=== PATIENT | male | born 1950 | race Caucasian/White ===

== ENCOUNTER 2024-08-01 09:06 | Outpatient (CLI) | payer MEDICARE, SELFPAY | END 2024-08-01 09:07 | disposition home or self-care (01) | LOC: AMB 08-02 09:54 | PROVIDERS: Visit Provider Emergency Medicine | DX: S79.911A Unspecified injury of right hip, initial encounter (principal); W18.30XA Fall on same level, unspecified, initial encounter; Y92.039 Unspecified place in apartment as the place of occurrence of the external cause | CPT/HCPCS: A0425; A0433 ==

== ENCOUNTER 2024-08-01 09:40 | Observation (INO) | payer MEDICARE, SELFPAY ==
[2024-08-01] VITALS (35 sets, daily range): BP systolic 180–186; BP diastolic 94–108; PULSE 95–102; RESP 18–20; TEMP 37.2–37.3; O2SAT 90–97; BMI 25.7; BMI 25.1
--- OUTSIDE RECORDS SUMMARY | 2024-08-01 09:42 | XMS_ITS | Clinical Summary ---
Author Organization [facility] Address [address] [place] [id number] Care Team Providers Care Farmworker Livestock Name Role Phone Wiley Ponce DO Primary Care Provider [phone] Allergies Active Allergy Reactions Criticality Noted Date Comments Penicillins *Unknown - Pt Doesn't Remember 06/2007 Medications Blood Pressure MonitorIndicatio ns:Hypertension, unspecified type Check blood pressure 2-3 times weekly in same arm. Record readings for appointments. 1 Device 8 Active naproxen (ALEVE) 220 mg tablet Take 1 tablet by mouth 2 times daily with meals. 0 0 Active ketorolac 0.5 % ophthalmic (ACULAR) solution INSTILL 1 DROP INTO OPERATIVE EYE 4 TIMES A DAY STARTING AFTER SURGERY 2 Active ofloxacin 0.3 % ophthalmic (OCUFLOX) 0.3 % ophthalmic solution instill 1 drop into operative eye 4 times a day starting Monday before surgery 2 Active prednisoLONE acetate 1% ophthalmic (ECONOPRED PLUS, PRED FORTE, OMNIPRED) suspension INSTILL 1 DROP INTO OPERATIVE EYE 4 TIMES A DAY STARTING AFTER SURGERY 2 Active amLODIPine (NORVASC) 5 mg tabletIndication s:HTN (hypertension) TAKE ONE TABLET BY MOUTH ONE TIME DAILY 90 Tablet 3 4 Active metFORMIN (GLUCOPHAGE XR) 500 mg Extended-Release tabletIndication s:Controlled type 2 diabetes mellitus with complication, without long-term current use of insulin (HC) Take 3 Tablets (1,500 mg) by mouth once daily with evening meal. Patient states he takes 3 270 Tablet 3 4 01/30/20 25 Active atorvastatin (LIPITOR) 40 mg tabletIndication s:Hypercholester olemia TAKE ONE TABLET BY MOUTH AT BEDTIME 90 Tablet 4 Active losartan (COZAAR) 100 mg tabletIndication s:HTN (hypertension) TAKE ONE TABLET BY MOUTH ONE TIME DAILY 90 Tablet 4 Active ezetimibe (ZETIA) 10 mg tabletIndication s:Hypercholester olemia TAKE ONE TABLET BY MOUTH ONE TIME DAILY 90 Tablet 4 Active Farxiga 5 mg tabletIndication s:Controlled type 2 diabetes mellitus with complication, without long-term current use of insulin (HC) TAKE ONE TABLET BY MOUTH ONE TIME DAILY 90 Tablet 4 Active Active Problems Problem Noted Date Diagnosed Date Fatty liver 07/12/2021 Overview (07/12/2021): Dx on CT done for lung ca screening 06/2021-- mild Hypercholesterolemia 07/11/2018 Controlled type 2 diabetes m ellitus with complication, without long-term current use of insulin 04/13/2018 HTN (hypertension) 04/13/2018 Current every day nicotine vaping 10/02/2012 Encounters Date Type Department Care Team Description 06/27/2024 9:00 AM PAVING PLANT OPERATOR Ancillary Procedure [facility] [address] [place] [address] 06/27/2024 8:05 AM PAVING PLANT OPERATOR Office Visit [facility] [address] [place] [address] Wiley Ponce DO Diabetes; Medication Management 06/27/2024 Travel 05/09/2024 Refill [facility] [address] [place] [address] Wiley Ponce DO Refill Request (Ezetimibe, Farxiga) from Last 3 Months Immunizations Name Administration Dates Next Due Pneumococcal conj 13-Valent (Prevnar 13) 020 Tdap 03/24/2014 Family History Medical History Relation Name Comments Heart attack Brother 1 Hypertension Brother 1 Hypertension Brother 2 Hypertension Brother 3 Heart attack Father Hypertension Father Heart attack Mother Hypertension Mother Anesthesia Malignant Hyperthermia Other Anesthesia Problem Other Hypertension Sister 1 Hypertension Sister 2 Relation Name Status Comments Brother 1 Alive Brother 2 Alive Brother 3 Alive Father Mother Other Sister 1 Alive Sister 2 Alive Social History Tobacco Use Types Packs/Day Years Used Date Smoking Tobacco: Every Day Cigarettes 0.7 52 Started: 06/28/1974 Smokeless Tobacco: Never Tobacco Cessation:Ready to Q uit: No; Counseling Given: Yes Alcohol Use Standard Drinks/Week Comments Yes 0 (1 standard drink = 0.6 oz pur e alcohol) 2 max per day PHQ-2 Answer Date Recorded PHQ-2 TOTAL SCORE 0 10/10/2023 Social Connections Answer Date Recorded Do you often feel lonely or isolated from those around you? 0 10/10/2023 Financial Resource Strain Answer Date R ecorded Difficulty of Paying Living Expenses 3 10/10/2023 Difficulty of Paying Living Expenses Not on file 10/10/2023 Food Insecurity Answer Date Recorded Do you worry your food will run out before you are able to buy more? 1 10/10/2023 Transportation Needs Answer Date Record ed Does lack of transportation keep you from medica l appointments? 1 10/10/2023 Does lack of transportation keep you from work, meetings or getting things that you need? 1 10/10/2023 Housing Stability Answer Date Recorded What is your housing situation today? 1 10/10/2023 Utilities Answer Date Recorded Do you have trouble paying f or utilities (for example, heat, electricity, water, phone)? 1 10/10/2023 Sex and Gender Information Value Date Recorded Sex Assigned at Not on file Legal Sex Male 6:15 AM PAVING PLANT OPERATOR Gender Identity Not on file Sexual Orientation Not on file Obstetrics History Last Filed Vital Signs Vital Sign Reading Time Taken Comments Blood Pressure 146/79 06/27/2024 8:30 AM PAVING PLANT OPERATOR Pulse 104 06/27/2024 8:11 AM PAVING PLANT OPERATOR Temperature 36.6 C (97.9 F) 09/01/2021 10:24 AM CDT Respiratory Rate 18 07/09/2021 10:16 AM PAVING PLANT OPERATOR Oxygen Saturation 98% 06/27/2024 8:11 AM PAVING PLANT OPERATOR Inhaled Oxygen Concentration - - Weight 89.6 kg (197 lb 9.6 oz) 06/27/2024 8:11 A M PAVING PLANT OPERATOR Height 180.6 cm (5' 11.1) 06/27/2024 8:11 AM CS T Body Mass Index 27.48 06/27/2024 8:11 AM PAVING PLANT OPERATOR Plan of Treatment Upcoming Encounters Date Type Department Care Team (Late st Contact Info) Description 08/22/2024 8:00 AM CDT Office Visit [facility] [address] [place] [address] Owen Diaz MD [address] [place] [address] 12/26/2024 8:55 AM CDT Office Visit [facility] [address] [place] [address] Wiley Ponce DO [address] [place] [address] Health Maintenance Due Date Last Done Comments Zoster (shingles) series for age 50+ (1 of 2) 01/16/2002 RSV vaccine for adults or (1 - Risk 60-74 years 1-dose series) 2012 Pneumococcal series for age 50+ (2 of 2 - PPSV23) 10/07/2019 08/12/2019 COVID-19 vaccine series (3 - season) 2024 08/22/2020, 08/01/2020 Influenza for age 65+ 01/28/2024 Tetanus booster 03/24/2024 03/24/2014 Depression screening for age 12+ 10/10/2024 10/11/2023, 10/10/2023, 08/18/2022, Additional history exists Medicare Wellness for age 65+ 10/10/2024 10/10/2023, 08/16/2022 (Verified in Care Everywhere or Patient Record) Low Dose CT (for lung CA) age 50-80 10/23/2024 10/24/2023, 07/09/2021 BMI (ht and wt on same day) for age 18+ 06/27/2025 06/27/2024, 10/10/2023, 08/16/2022, Additional history exists Colonoscopy through age 75 06/29/2025 P ostponed from 01/16/1997 (Patient discretion) Lipids for age 45-75 10/09/2028 10/10/2023, 08/16/2022, 11/25/2020, Additional history exists Tdap Completed 03/24/2014 Hepatitis C screening for age 18-79 Completed 08/12/2019 AAA screening age 65-74 Completed 02/13/2020 Goals Goal Patient Goal Type Associated Problems Recent Progress Patient-Stated? Author BLOOD PRESSURE - Maintains BP less than 140/90 Blood Pressure No Wendy Watters PA Procedures Procedure Name Priority Date/Time Associated Diagnosis Comments HEMOGLOBIN A1C MONITORING (POCT) Routine 06/27/2024 9:34 AM PAVING PLANT OPERATOR Controlled type 2 diabetes mellitus with complication, without long-term current use of insulin (HC) BASIC METABOLIC PANEL Routine 06/27/2024 9:33 AM PAVING PLANT OPERATOR Controlled type 2 diabetes mellitus with complication, without long-term current use of insulin (HC) HTN (hypertension) XR KNEE 3 VIEWS RIGHT Routine 06/27/2024 9:15 AM PAVING PLANT OPERATOR Chronic pain of right knee URINE ALBUMIN TO CREATININE RATIO, RANDOM Routine 06/27/2024 8:40 AM PAVING PLANT OPERATOR Controlled type 2 diabetes mellitus with complication, without long-term current use of insulin (HC) CT CHEST SCREENING LOW DOSE WO CONTRAST Routine 10/24/2023 9:06 AM CDT Encounter for screening for lung cancer Personal history of nicotine dependence LIPID PANEL W REFLEX MEASURED LDL Routine 10/10/2023 8:25 AM CDT Controlled type 2 diabetes mellitus with complication, without long-term current use of insulin (HC) US ABD AORTA SCREENING Routine 02/13/2020 7:52 AM CDT Screening for AAA (aortic abdominal aneurysm) ANTI HCV Routine 08/12/2019 8:48 AM CDT HTN (hypertension) from Last 3 Months or Most Recently Relevant to Health Maintenance Results * (ABNORMAL) POCT Hemoglobin A1C Monitoring (06/27/2024 9:34 AM PAVING PLANT OPERATOR) [facility] POC HEMOGLOBIN A1C 6.7(H) <6.0 % OF TOTAL HGB [facility] Comment: Any point of care results exhibiting inconsistency with the patient's clinical status should be repeated using a different testing method. Blood BLOOD SPECIMEN / Unknown 06/27/2024 9:34 AM PAVING PLANT OPERATOR 06/27/2024 9:34 AM PAVING PLANT OPERATOR Wiley Ponce DO CHEMISTRY Final Result [facility] [address] [place] [address], [facility] [address] [place] [address] * (ABNORMAL) BASIC METABOLIC PANEL (06/27/2024 9:33 AM PAVING PLANT OPERATOR) [facility] GLUCOSE 165(H) 65 - 99 mg/dL [facility] Comment: Fasting reference interval For someone without known diabetes, a glucose value >125 mg/dL indicates that they may have diabetes and this should be confirmed with a follow-up test. UREA NITROGEN (BUN) 17 7 - 25 mg/dL [facility] CREATININE 1.18 0.70 - 1.28 mg/dL [facility] EGFR 66 > OR = 60 mL/min/1. 73m2 [facility] BUN/CREATININE RATIO SEE NOTE: 6 - 22 (calc) [facility] Comment: Not Reported: BUN and Creatinine are within reference range. SODIUM 136 135 - 146 mmol/L [facility] POTASSIUM 4.7 3.5 - 5.3 mmol/L [facility] CHLORIDE 99 98 - 110 mmol/L [facility] CARBON DIOXIDE 28 20 - 32 mmol/L [facility] ELECTROLYTE BALANCE 9 7 - 17 mmol/L (calc) [facility] CALCIUM 9.8 8.6 - 10.3 mg/dL [facility] Blood BLOOD SPECIMEN / Unknown 06/27/2024 9:33 AM PAVING PLANT OPERATOR 06/27/2024 9:33 AM PAVING PLANT OPERATOR us Wiley Ponce DO CHEMISTRY Final Result [facility] [address] [place] [address], [place] [phone] [facility] [address] [place] [address] * XR KNEE 3 VIEWS RIGHT (06/27/2024 9:15 AM PAVING PLANT OPERATOR) Anatomical Region Laterality Modality KNEES, KNEE R Computed Radiogr aphy 06/27/2024 10:2 9 AM PAVING PLANT OPERATOR Impressions 06/27/2024 10:29 AM PAVING PLANT OPERATOR 1. 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 Dictated by Ryan Izquierdo MD @ 06/27/2024 10:29:33 AM Dictated by: Ryan Izquierdo MD @ 06/27/2024 10:29:39 (Electronically Signed) Narrative 06/27/2024 10:29 AM PAVING PLANT OPERATOR For Patients: As a result of the Cures Act, medical imaging exams and procedure reports are released immediately into your electronic medical record. You may view this report before your referring provider. If you have questions, please contact your health care provider. INDICATION: Chronic pain of right knee TECHNIQUE: Knee radiograph 3 views right COMPARISON: 03/24/2014 FINDINGS: Bone: No acute fractures or aggressive bone lesions are identified. Joint: There is severe medial, moderate patellofemoral, and mild lateral compartment osteoarthritis present and progressed from prior exam. No significant knee effusion is seen. Soft tissue: Unremarkable. No radiopaque foreign bodies are seen. Moderate vascular calcifications are noted. Procedure Note Ryan Izquierdo MD - 06/27/2024 For Patients: As a result of the Cures Act, medical imagingexams and procedure reports are released immediately into your electronicmedical record. You may view this report before your referring provider.If you have questions, please contact your health care provider. INDICATION: Chronic pain of right knee TECHNIQUE: Knee radiograph 3 views right COMPARISON: 03/24/2014 FINDINGS: Bone: No acute fractures or aggressive bone lesions are identified. Joint: There is severe medial, moderate patellofemoral, and mild lateralcompartment osteoarthritis present and progressed from prior exam. Nosignificant knee effusion is seen. Soft tissue: Unremarkable. No radiopaque foreign bodies are seen. Moderatevascular calcifications are noted. IMPRESSION: 1. There is severe medial, moderate patellofemoral, and mild lateralcompartment osteoarthritis present and progressed from prior exam. Dictated by Ryan Izquierdo MD @ 06/27/2024 10:29:33 AM Dictated by: Ryan Izquierdo MD @ 06/27/2024 10:29:39 (Electronically Signed) us Adei Ambroniteqra DO GENERAL IMAGING Final Result * (ABNORMAL) URINE ALBUMIN TO CREATININE RATIO, RANDOM (06/27/2024 8:40 AM PAVING PLANT OPERATOR) ALB RAND URINE 153.0 mg/L 06/27/2024 2:50 PM PAVING PLANT OPERATOR [facility] CREATININE,URIN E 1.10 g/L 06/27/2024 2:50 PM PAVING PLANT OPERATOR [facility] ALBUMIN TO CREATININE RATIO,RAND UR 139.1(H) <30.0 mg/g creat 06/27/2024 2:50 PM PAVING PLANT OPERATOR [facility] Urine URINE SPECIMEN / Unknown Non-Blood / Unknown 06/27/2024 8:40 AM PAVING PLANT OPERATOR 06/27/2024 8:40 AM PAVING PLANT OPERATOR Narrative [facility] - 06/27/2024 2:50 PM PAVING PLANT OPERATOR If Albumin to Creatinine Ratio is elevated, consider the following: Elevations seen with incipient nephropathy associated with diabetes mellitus or hypertension. Stress, exercise,hematuria, and urinary tract infection may also produce elevated results. If clinically indicated, confirm with 24 Hour Albumin to Creatinine Ratio. us Adei Ambroniteqra DO URINE Final Result [facility] [address] [place] [address], [place] * CT CHEST SCREENING LOW DOSE WO CONTRAST [[id number]] (10/24/2023 9:06 AM CDT) Anatomical Region Laterality Modality Computed Tomogra phy Impressions 10/25/2023 9:55 AM CDT No suspicious pulmonary nodules. LUNG-RADS CATEGORY 1: Negative. RADIOLOGIST RECOMMENDATION: Continue annual screening with low-dose CT chest in 12 months. Please note that all CT scans at this facility use dose modulation, iterative reconstruction and/or weight-based dosing when appropriate to reduce radiation dose to as low as reasonably achievable. Dictated by: Ismael Schumacher MD @10/24/2023 12:44:38 PM/CRL:pjt Narrative 10/25/2023 9:55 AM CDT For Patients: As a result of the Cures Act, medical imaging exams and procedure reports are released immediately into your electronic medical record. You may view this report before your referring provider. If you have questions, please contact your health care provider. CHEST SCREENING LOW DOSE WITHOUT CONTRAST INDICATION: Lung cancer screening. History of smoking. High risk patient with greater than 20 pack-year smoking history. TECHNIQUE: Low-dose lung cancer screening non-contrast CT chest. Dose reduction techniques were used. COMPARISON: 07/09/2021 FINDINGS: NODULES: No suspicious pulmonary nodules. Benign-appearing 2 mm right upper lobe calcified granuloma. LUNGS AND PLEURA: Mild emphysematous changes at the lung apices. No focal airspace opacities or pleural effusions. MEDIASTINUM: No significant lymphadenopathy. CORONARY ARTERY CALCIFICATION: Present. LIMITED UPPER ABDOMEN: No acute findings in the visualized portions. MUSCULOSKELETAL: Visualized osseous structures demonstrate degenerative changes in the spine. us Adei Shaqra DO CT Final Result * (ABNORMAL) LIPID PANEL W REFLEX MEASURED LDL (10/10/2023 8:25 AM CDT) CHOLESTEROL,TOTAL 190 100 - 199 mg/dL 10/10/2023 6:06 PM CDT [facility] Comment: Cholesterol, Total Reference Ranges Desirable <200 mg/dL Borderline 200-239 mg/dL High >=240 mg/dL TRIGLYCERIDES 186(H) <150 mg/dL 10/10/2023 6:06 PM CDT [facility] HDL CHOLESTEROL 56 >40 mg/dL 6:06 PM CDT [facility] NON-HDL CHOLESTEROL 134 <145 mg/dl 10/10/2023 6:06 PM CDT [facility] CHOL/HDL RATIO 3.39 <4.50 10/10/2023 6:06 PM CDT [facility] LDL CHOLESTEROL 97 <=130 mg/dL 10/10/2023 6:06 PM CDT [facility] VLDL CHOLESTEROL 37(H) <=30 mg/dL 10/10/2023 6:06 PM CDT [facility] PROVIDER ORDERED STATUS RANDOM 10/10/2023 6:06 PM CDT [facility] Blood BLOOD SPECIMEN / Unknown Venipuncture / Unknown 10/10/2023 8:25 AM CDT 10/10/2023 8:27 AM CDT us Wiley Ponce DO CHEMISTRY Final Result [facility] [address] [place] [address], [place] * US ABD AORTA SCREENING [[id number]] (02/13/2020 7:52 AM CDT) Anatomical Region Laterality Modality Abdomen, AORTA Ultrasound 02/13/2020 11:2 4 AM CDT Narrative 02/13/2020 11:24 AM CDT INDICATION: Screening for abdominal aortic aneurysm. COMPARISON: None. TECHNIQUE: Prado scale and color Doppler images were acquired of the abdominal aorta and iliac arteries. FINDINGS: Sonographic imaging demonstrates a normal appearance of the visualized included abdominal aorta and IVC. There is no evidence of aneurysm formation or aortic dissection. Please note the proximal abdominal aorta is not seen due to bowel gas. However the mid aorta measures 2.5 x 2.6 cm, and distally tapers to a measurement of 2.4 x 2.1 cm. The common iliac arteries are patent and measure 1.6 x 1.6 cm on the right and 1.7 x 1.4 cm in diameter on the left. There were no suspicious periaortic masses. IMPRESSION: Normal sonographic assessment of the visualized included abdominal aorta. Please note the proximal abdominal aorta is not well seen due to bowel gas. Dictated by Kash Will MD @ Feb 13 2020 11:24AM (Electronically Signed) Procedure Note Kash Will MD - 02/13/2020 INDICATION: Screening for abdominal aortic aneurysm. COMPARISON: None. TECHNIQUE: Prado scale and color Doppler images were acquired of the abdominal aortaand iliac arteries. FINDINGS: Sonographic imaging demonstrates a normal appearance of the visualizedincluded abdominal aorta and IVC. There is no evidence of aneurysmformation or aortic dissection. Please note the proximal abdominal aortais not seen due to bowel gas. However the mid aorta measures 2.5 x 2.6 cm,and distally tapers to a measurement of 2.4 x 2.1 cm. The common iliacarteries are patent and measure 1.6 x 1.6 cm on the right and 1.7 x 1.4 cmin diameter on the left. There were no suspicious periaortic masses. IMPRESSION: Normal sonographic assessment of the visualized included abdominal aorta.Please note the proximal abdominal aorta is not well seen due to bowelgas. Dictated by Kash Will MD @ Feb 13 2020 11:24AM (Electronically Signed) Wendy LEDESMA US Final Result * ANTI HCV (08/12/2019 8:48 AM CDT) HEPATITIS C ANTIBODY Non-React trish Non-React trish 08/12/2019 2:43 PM CDT [facility] Comment:Antibodies to HCV no t detected; does not exclude the possibility of exposure to HCV. Blood BLOOD SPECIMEN / Unknown Venipuncture / Unknown 08/12/2019 8:48 AM CDT 08/12/2019 8:48 AM CDT Wendy LEDESMA SEND OUTS Final Result [facility] [address] [place] [address], [place] from Last 3 Months or Most Recently Relevant to Health Maintenance Insurance [address] [place] [id number] [facility] MR/[address] [place] [address] [facility] Care Teams Farmworker Livestock Relationship Specialty Start Date End Date Wiley Ponce DO [address] [place] [address] PCP - General Family Practice 08/16/22
--- OUTSIDE RECORDS SUMMARY | 2024-08-01 09:42 | XMS_ITS | Continuity of Care Document ---
Author Organization [facility] Address [address] [place] [address] Phone Care Team Providers Care Chiropractic Physician Name Role Phone Remedios Carney Unavailable Unavailable Allergies, Adverse Reactions, Alerts Substance Reaction Status Criticality Penicillins Unknown Active No Information Medications Medication Instructions Dosage Effective Dates (start - stop) Status Comments calcitonin (salmon) 200 unit/actuation nasal spray 1 spray in 1 nostril once daily, alternate nostrils - Active M[employer] [facility] (unknown strength) Not Available - Active Procedures Procedure Date Office/Outpatient Visit,Est, Mod 2017 X-Ray Exam Of Trunk Spine 2 Views Office/Outpatient Visit,Est, Mod 2017 X-Ray Exam Lower Spine 2-3 Views 2017 Office/Outpatient Visit,Est, Mod 2017 X-Ray Exam Lower Spine 2-3 Views 2017 Office/Outpatient Visit,New, Mod 2017 Advance Directives Directive Yes / No Effective Date File Name No Information Encounters Encounter Description Practice Location Reason(s) For Visit Diagnoses Date Provider Providers Copied on Encounter Office/Outpat ient Visit,Est, Mod [facility], [address], [place], [place], [id number], [place] tel:[phone] [facility] L1 wedge compression fracture, subsequent encounter for fracture w/ routine healing Ariana Remedios. [facility], [address] [place] [address] [address], [place], [address], [place]. tel:[phone] Referring Provider: Sherrill Harrington, [employer] [facility], [place], [address]. tel:[phone] Office/Outpat ient Visit,Est, Mod [facility], [address], [facility] [place], [id number], [place] tel:[phone] [facility] L1 wedge compression fracture, subsequent encounter for fracture w/ routine healing Ariana Remedios. [facility], [address] [place] [address] [address], [place], [address], [place]. tel:[phone] Referring Provider: Sherrill Harrington, [employer] [facility], [place], [address]. tel:[phone] Office/Outpat ient Visit,Est, Mod [facility], [address], [facility] [place], [id number], [place] tel:[phone] [facility] L1 wedge compression fracture, subsequent encounter for fracture w/ routine healing Ariana Remedios. [facility], [address] [place] [address] [address], [place], [address], [place]. tel:[phone] Referring Provider: Sherrill Harrington, [employer] [facility], [place], [address]. tel:[phone] Office/Outpat ient Visit,New, Mod [facility], [address], [facility] [place], [id number], [place] tel:[phone] [facility] L1 wedge compression fracture, initial encounter for closed fracture Ariana Remedios. [facility], [address] [place] [address] [address], [place], [address], [place]. tel:[phone] Referring Provider: Sherrill Harrington, [employer] [facility], [place], [address]. tel:[phone] Family History Family Member Type Diagnosis Age At Onset No Information Payers Payer name Insurance type Covered alliance party ID Cristina serna(radha) [place] [address] [facility] [id number] Social History Type Description Quantity Date Captured Comments Alcohol Use Details Unknown Caffeine Use Details Unknown Tobacco Use Status Smoking Status No Information Sex Male Vital Signs Date / Time: Height Weight BMI Pulse Rate Blood Pressure Temperature Respiratory Rate Body Surface Area Head Circumference Head Circ. Percentile Wt./Julian. Percentile BMI percentile Pulse Ox Inhaled Ox 10:11 AM 71.00 in 87.997 kg (194.00 lbs) 27.0 5 kg/m eter (2) 102 /min 192/126 mm[Hg] Chief Complaint And Reason For Visit No Information Reason For Referral Reason For Referral No Information Plan Of Treatment Date Type Action Status Future Order: Radiology Order AP Lateral Lumbar (APLatLumb), Ordered on: Ordered Future Order: Radiology Order AP Lateral Lumbar (APLatLumb), Ordered on: Ordered Future Order: Radiology Order AP Lateral Lumbar (APLatLumb), Ordered on: Ordered History Of Present Illness Encounter Date Complaint History Of Prese nt Illness No Information Functional Status Date Functional Assessmen t No Information Instructions Date Instruction Additional Infor mation No Information Assessments Type Assessment Date No Information Patient Care Teams Name Effective Dates (start - stop) Status Members No Information
--- NOTE | 2024-08-01 10:16 | CRLHL7_ITS ---
For Patients: As a result of the Cures Act, medical imaging exams and procedure reports are released immediately into your electronic medical record. You may view this report before your referring provider. If you have questions, please contact your health care provider. Indication: right hip fracture, pre-op Technique: AP view of the chest. Comparison: 08/23/2021. Findings: Low lung volumes. Normal cardiomediastinal silhouette. No focal consolidation, pleural effusions, or visualized pneumothorax. Impression: No acute cardiopulmonary disease. Dictated by Leon Prabhakar MD @ 08/01/2024 11:23:46 AM (Electronically Signed)
--- NOTE | 2024-08-01 10:17 | CRLHL7_ITS ---
For Patients: As a result of the Century Cures Act, medical imaging exams and procedure reports are released immediately into your electronic medical record. You may view this report before your referring provider. If you have questions, please contact your health care provider. Indication: Right hip fracture Technique: Three views right hip, AP pelvis and two-view right hip Comparison: None Findings/Impression: Bones: Alignment is normal. No fractures or bone lesions. Joint spaces: Unremarkable. Soft tissues: Atherosclerotic calcification. Dictated by Gabriele Giang MD @ 08/01/2024 11:37:07 AM (Electronically Signed)
--- NOTE | 2024-08-01 10:19 | ED_ITS ---
HPI - General Adult General Time Seen by Provider: 10:19 Date Seen: 08/01/24 Chief complaint: Hip Injury/Pain Stated complaint: fall Time Seen by Provider: 08/01/24 09:41 Source: patient and EMS Mode of arrival: EMS Limitations: physical limitation History of Present Illness HPI narrative: Abad is a 74-year-old male presents emerged department via EMS and from home after a fall. Patient states he when out side last night around 9:00 p.m. to have a smoke, while he was walking across the parking lot he slipped falling to his right side, hitting his right elbow and right hip to on the ground. Patient denies any head injury or loss consciousness. He is currently not on any blood thinners. Was able to crawl back to his home and into bed. He woke up this mor sajan, 345 minutes get out of bed and go to the bathroom. Pain persisted so he called EMS. Pain is 8/10 with movement, denies any numbness, paresthesia weakness of the right lower extremity. Pain is mostly in the groin area, range of motion limited due to pain. He also sustained a right elbow injury, small laceration. Full range of motion. Related Data Home Medications ?Medication ?Instructions ?Recorded ?Confirmed amlodipine 5 mg tablet 5 mg PO DAILY 08/01/24 08/01/24 atorvastatin 40 mg tablet 40 mg PO HS 08/01/24 08/01/24 dapagliflozin propanediol 5 mg 5 mg PO DAILY 08/01/24 08/01/24 tablet (Farxiga) ezetimibe 10 mg tablet 10 mg PO DAILY 08/01/24 08/01/24 losartan 100 mg tablet 100 mg PO DAILY 08/01/24 08/01/24 metformin 500 mg tablet,extended 1,500 mg PO QPM 08/01/24 08/01/24 release 24 hr Allergies Allergy/AdvReac Type Severity Reaction Status Date / Time Penicillins Allergy Unknown Verified 08/01/24 09:50 Review of Systems Status of ROS: Reports: 10 or more systems reviewed and unremarkable except as noted in History and below [facility] Social History Smoking Status: Never smoker Do you use any of these nicotine containing products: None Second hand tobacco smoke exposure: No How often do you have a drink containing alcohol: never AUDIT-C Alcohol total score: 0 Non-prescribed substance use: denies use service: No Exam Narrative: Exam Narrative: General: No obvious distress sitting comfortably HEENT: Head is atraumatic, pupils equal round reactive to light, nontender cervical spine Lungs: CTAb/L Heart: Sinus tachycardia Abdomen: Soft, bowel sounds present, nontender Muscle skeletal: Right lower extremity is shortened and externally rotated, CMS intact, pain with internal external rotation, unable to extend or flex Tender to palpation the right inguinal area. Neuro: AA0X3, GCS 15 Const: Vital Signs, click to edit/add: Vital Signs - 24 hr 08/01/24 09:45 08/01/24 09:46 08/01/24 09:46 Temperature 99.1 F Pulse Rate [Right Pulse Oximeter] 101 H Respiratory Rate 18 Blood Pressure [Ri ght Upper Arm] 186/96 H Pulse Oximetry 95 91 91 Oxygen Delivery Me thod Room Air 08/01/24 09:47 08/01/24 09:50 08/01/24 10:00 Temperature Pulse Rate [Right Pulse Oximeter] Respiratory Rate Blood Pressure [Ri ght Upper Arm] Pulse Oximetry 94 95 91 Oxygen Delivery Me thod 08/01/24 10:10 08/01/24 11:09 08/01/24 11:10 Temperature Pulse Rate [Right Pulse Oximeter] Respiratory Rate Blood Pressure [Ri ght Upper Arm] Pulse Oximetry 94 91 92 Oxygen Delivery Me thod 08/01/24 11:11 08/01/24 11:20 08/01/24 11:30 Temperature Pulse Rate [Right Pulse Oximeter] Respiratory Rate Blood Pressure [Ri ght Upper Arm] Pulse Oximetry 93 90 92 Oxygen Delivery Me thod 08/01/24 11:32 08/01/24 11:40 08/01/24 11:50 Temperature Pulse Rate [Right Pulse Oximeter] Respiratory Rate Blood Pressure [Ri ght Upper Arm] Pulse Oximetry 93 94 96 Oxygen Delivery Me thod 08/01/24 12:08 08/01/24 12:10 08/01/24 12:20 Temperature Pulse Rate [Right Pulse Oximeter] Respiratory Rate Blood Pressure [Ri ght Upper Arm] Pulse Oximetry 94 92 93 Oxygen Delivery Me thod 08/01/24 12:30 08/01/24 12:32 08/01/24 12:40 Temperature Pulse Rate [Right Pulse Oximeter] Respiratory Rate Blood Pressure [Ri ght Upper Arm] Pulse Oximetry 94 94 92 Oxygen Delivery Me thod 08/01/24 12:50 08/01/24 13:00 08/01/24 13:01 Temperature Pulse Rate [Right Pulse Oximeter] Respiratory Rate Blood Pressure [Ri ght Upper Arm] Pulse Oximetry 95 93 93 Oxygen Delivery Me thod 08/01/24 13:10 08/01/24 13:20 08/01/24 13:30 Temperature Pulse Rate [Right Pulse Oximeter] Respiratory Rate Blood Pressure [Ri ght Upper Arm] Pulse Oximetry 93 94 93 Oxygen Delivery Me thod 08/01/24 13:32 08/01/24 13:40 08/01/24 13:50 Temperature Pulse Rate [Right Pulse Oximeter] Respiratory Rate Blood Pressure [Ri ght Upper Arm] Pulse Oximetry 96 97 94 Oxygen Delivery Me thod Course Course ED Course: ED course: 10:00 AM: aidet performed. vitals show mild tachycardia, mild elevated blood pressure likely secondary to pain. Workup will include IV peripheral, CBC, CMP, XR pelvis and right hip three views, XR elbow right 3 views, Dilaudid 0.5 mg and 15 mg Toradol for pain. Suspect right hip fracture. Differential include fracture, sprain, contusion or dislocation, vascular damage nerve damage ligament damage, tendon damage as well as other etiologies. Reevaluation(s) Time of Reevaluation #1: 11:42 Reevaluation #1: CBC showed no abnormalities, his metabolic panel unchanged from previous. XR right elbow: Findings/Impression: Bones: Ossific fragment within the volar soft tissues at the proximal forearm which can represent dystrophic calcification or an age-indeterminate avulsion fragment. Joint spaces: No dislocation or elbow effusion. XR pelvis and right hip: Soft tissues: Mild enthesopathic calcification lateral epicondyle distal humerus. Findings/Impression: Bones: Alignment is normal. No fractures or bone lesions. Joint spaces: Unremarkable. Soft tissues: Atherosclerotic calcification. XR chest Portable one view: Impression: No acute cardiopulmonary disease. Time of Reevaluation #2: 12:32 Reevaluation #2: To patient's ongoing pain will obtain CT pelvis without contrast of fracture. CT pelvis without IV contrast Impression: Acute nondisplaced comminuted fracture of the anterior 3rd right acetabulum extending to the joint space. Additional acute nondisplaced right inferior pubic ramus fracture. Patient was given the above care and did well, plan to admit for PT OT evaluation pain control, this nonsurgical, was able to speak to hospitalist Dr. Juan Carlos AREVALO, she accepts care of the patient to a [facility] surgery floor bed. Questions answered. Vital Signs Vital signs: Initial Vital Signs Temperature 99.1 F 08/01/24 09:45 Temperature Source Temporal Artery Scan 08/01/24 09:45 Pulse Rate 101 H 08/01/24 09:45 Pulse Rhythm Regular 08/01/24 09:45 Pulse Strength 3+ Normal 08/01/24 09:45 Respiratory Rate 18 08/01/24 09:45 Blood Pressure 186/96 H 08/01/24 09:45 Blood Pressure Mean 126 H 08/01/24 09:45 Blood Pressure Position High-Fowlers 08/01/24 09:45 Pulse Oximetry 95 08/01/24 09:45 Oxygen Delivery Method Room Air 08/01/24 09:45 Vital Signs Temperature 99.1 F 08/01/24 09:45 Pulse Rate 101 H 08/01/24 09:45 Respiratory Rate 18 08/01/24 09:45 Blood Pressure 186/96 H 08/01/24 09:45 Pulse Oximetry 95 08/01/24 09:45 Oxygen Delivery Method Room Air 08/01/24 09:45 Temperature 99.1 F 08/01/24 09:45 Pulse Rate 101 H 08/01/24 09:45 Respiratory Rate 18 08/01/24 09:45 Blood Pressure 186/96 H 08/01/24 09:45 Pulse Oximetry 94 08/01/24 13:50 Oxygen Delivery Method Room Air 08/01/24 09:45 Medications Administered Medications: Discontinued Medications Generic Name Dose Route Start Last Admin Trade Name Freq PRN Reason Stop Dose Admin Hydromorphone HCl 0.5 mg 08/01/24 10:15 08/01/24 10:29 Hydromorphone 0.5 Mg/0.5 Ml Inj IVP 08/01/24 10:16 0.5 mg ONCE ONE Administration Hydromorphone HCl 0.5 mg 08/01/24 13:56 08/01/24 14:02 Hydromorphone 0.5 Mg/0.5 Ml Inj IVP 08/01/24 13:57 0.5 mg ONCE ONE Administration Ketorolac Tromethamine 15 mg 08/01/24 10:15 08/01/24 10:29 Ketorolac 15 Mg/Ml Inj IVP 08/01/24 10:16 15 mg ONCE ONE Administration Medical Decision Making Lab Data Labs: Lab Results 08/01/24 Range/Units 10:24 WBC 10.60 (4.50-11.00) K/uL RBC 4.64 (4.30-5.90) m/uL Hgb 14.7 (13.5-17.5) gm/dL Hct 42.0 (37.0-53.0) % MCV 91 (80-100) fL MCH 32 (26-34) pg MCHC 35 (32-36) gm/dL RDW Coeff of Adriana 12.2 (11.5-15.5) % Plt Count 156 (140-440) K/uL Neut % (Auto) 85.5 H (42.0-72.0) % Lymph % (Auto) 7.1 L (20-44) % Will % (Auto) 6.4 (0.0-11.0) % Eos % (Auto) 0.3 (0.0-7.0) % Baso % (Auto) 0.4 (0.0-3.0) % Neut # (Auto) 9.10 H (1.7-7.0) K/uL Lymph # (Auto) 0.80 L (0.90-2.90) K/uL Will # (Auto) 0.70 (0.00-0.90) K/UL Eos # (Auto) 0.03 (0.00-0.50) K/uL Baso # (Auto) 0.04 (0.00-0.30) K/uL Abs Immat Gran (auto) 0.03 (0.00-0.30) K/uL Imm/Tot Granulo (auto) 0.3 % Sodium 136 (135-149) mmol/L Potassium 4.3 (3.6-5.1) mmol/L Chloride 102 (96-114) mmol/L Carbon Dioxide 25 (20-32) mmol/L Anion Gap 9 (7-15) mEq/L BUN 19 (7-30) mg/dL Creatinine 0.9 (0.5-1.5) mg/dL Estimated Creat Clear 75.46 Estimated GFR 91 ml/min Glucose 162 H (60-115) mg/dL Calcium 9.2 (8.4-10.6) mg/dL Total Bilirubin 0.9 (0.1-1.5) mg/dL AST 31 (12-35) U/L ALT 30 (4-50) U/L Alkaline Phosphatase 73 (40-150) U/L Total Protein 7.4 (6.0-8.3) g/dL Albumin 4.7 (3.3-5.0) g/dL Discharge Plan Discharge Clinical Impression: Closed right acetabular fracture, Fracture of ramus of right pubis Patient Disposition: Admitted As Observation
--- NOTE | 2024-08-01 10:21 | CRLHL7_ITS ---
For Patients: As a result of the Century Cures Act, medical imaging exams and procedure reports are released immediately into your electronic medical record. You may view this report before your referring provider. If you have questions, please contact your health care provider. Indication: Fall from standing Technique: Three views right elbow Comparison: None Findings/Impression: Bones: Ossific fragment within the volar soft tissues at the proximal forearm which can represent dystrophic calcification or an age-indeterminate avulsion fragment. Joint spaces: No dislocation or elbow effusion. Soft tissues: Mild enthesopathic calcification lateral epicondyle distal humerus. Dictated by Gabriele Giang MD @ 08/01/2024 11:30:09 AM (Electronically Signed)
[2024-08-01] MEDS: KETOROLAC 15 MG/ML inj IVP (10:29)
[2024-08-01] MEDS: HYDROmorphone 0.5 mg/0.5 ml inj IVP ×2 (10:29→14:02)
[2024-08-01 10:34] LABS: Basophils Absolute Auto 0.04 K/uL (0.00-0.30); Basophils Percent Auto 0.4 % (0.0-3.0); Eosinophils Absolute Auto 0.03 K/uL (0.00-0.50); Eosinophils Percent Auto 0.3 % (0.0-7.0); Hemoglobin* 14.7 gm/dL (13.5-17.5); Immature Granulocytes Abs Auto 0.03 K/uL (0.00-0.30); Immature Granulocytes Pct Auto 0.3 %; Lymphocytes Percent Auto 7.1 % (20-44); Mean Corpuscular HGB Conc 35 gm/dL (32-36); Mean Corpuscular Hemoglobin 32 pg (26-34); Mean Corpuscular Volume 91 fL (80-100); Monocytes Percent Auto 6.4 % (0.0-11.0); Neutrophils Percent Auto 85.5 % (42.0-72.0); Platelet Count* 156 K/uL (140-440); RDW Coefficient of Variation % 12.2 % (11.5-15.5); Red Blood Count 4.64 m/uL (4.30-5.90)
[2024-08-01 10:36] LABS: Slide Review Reflex No
[2024-08-01 10:42] LABS: Albumin* 4.7 g/dL (3.3-5.0); Chloride* 102 mmol/L (96-114); Potassium* 4.3 mmol/L (3.6-5.1); Sodium* 136 mmol/L (135-149)
[2024-08-01 10:45] LABS: Alanine Aminotransferase* 30 U/L (4-50); Alkaline Phosphatase* 73 U/L (40-150); Anion Gap 9 mEq/L (7-15); Aspartate Amino Transferase* 31 U/L (12-35); Blood Urea Nitrogen* 19 mg/dL (7-30); Calcium* 9.2 mg/dL (8.4-10.6); Carbon Dioxide* 25 mmol/L (20-32); Creatinine* 0.9 mg/dL (0.5-1.5); Est. Creatinine Clearance* 75.46; Estimated Glomerular Filt Rate 91 ml/min; Glucose* 162 mg/dL (60-115); Total Protein* 7.4 g/dL (6.0-8.3)
--- OUTSIDE RECORDS SUMMARY | 2024-08-01 10:49 | XMS_ITS | Continuity of Care Document ---
Author Organization [facility] Address [address] [place] [address] Phone Care Team Providers Care [employer] Name Role Phone Remedios Carney Unavailable Unavailable [...] ient Visit,Est, Mod [facility], [address], [place], [place], [id number], [place] tel:[phone] [facility] L1 wedge compression fracture, subsequent encounter for fracture w/ routine healing Ariana Remedios. [facility], [address] [place] [address] [address], [facility], [address], [place]. tel:[phone] Referring Provider: Sherrill Harrington, [employer] [facility], [place], [address]. tel:[phone] Office/Outpat ient Visit,Est, Mod [facility], [address], [facility] [place] [id number], [place] tel:[phone] [facility] L1 wedge compression fracture, subsequent encounter for fracture w/ routine healing Ariana Remedios. [facility], [address] [place] [address] [address], [facility] [place], [address], [place]. tel:[phone] Referring Provider: Sherrill Harrington, [employer] [facility], [place], [address]. tel:[phone] Office/Outpat ient Visit,Est, Mod [facility], [address], [facility] [place], [id number], [place] tel:[phone] [facility] L1 wedge compression fracture, subsequent encounter for fracture w/ routine healing Ariana Remedios. [facility], [address] [place] [address], [place], [address], [place]. tel:[phone] Referring Provider: Sherrill Harrington, [employer] [facility], [place], [address]. tel:[phone] Office/Outpat ient Visit,New, Mod [facility], [address], [facility] [place] [id number], [place] tel:[phone] [facility] L1 wedge compression fracture, initial encounter for closed fracture Ariana Remedios. [facility], [address] [place] [address] [address], [place], [address], [place]. tel:[phone] Referring Provider: Sherrill Harrington, [employer] [facility], [place], [address]. tel:[phone] Family History Family Member Type Diagnosis Age At Onset No Information Payers Payer name Insurance type Covered constitution party ID Crist[place] serna([place] [address] [facility] [id number] Social History Type Description Quantity Date Captured [...]
--- OUTSIDE RECORDS SUMMARY | 2024-08-01 10:49 | XMS_ITS | Clinical Summary ---
Author Organization [employer] [facility] Address [address] [place] [id number] Care Team Providers Care Poultryman Name Role Phone Wiley Ponce DO Primary Care Provider [phone] Allergies Active Allergy Reactions Criticality Noted Date [...] Department Care Team Description 06/27/2024 9:00 AM IT BUSINESS SYSTEMS ANALYST Ancillary Procedure [facility] [address] [place] [address] 06/27/2024 8:05 AM IT BUSINESS SYSTEMS ANALYST Office Visit [facility] [address] [place] [address] Wiley Ponce DO Diabetes; Medication Management 06/27/2024 Travel 05/09/2024 Refill [facility] [address] [place] [address] Wiley Ponce DO Refill Request (Ezetimibe, Farxiga) [...] on file Legal Sex Male 6:15 AM IT BUSINESS SYSTEMS ANALYST Gender Identity Not on file Sexual Orientation Not on file Obstetrics History Last Filed Vital Signs Vital Sign Reading Time Taken Comments Blood Pressure 146/79 06/27/2024 8:30 AM IT BUSINESS SYSTEMS ANALYST Pulse 104 06/27/2024 8:11 AM IT BUSINESS SYSTEMS ANALYST Temperature 36.6 C (97.9 F) 09/01/2021 10:24 AM CDT Respiratory Rate 18 07/09/2021 10:16 AM IT BUSINESS SYSTEMS ANALYST Oxygen Saturation 98% 06/27/2024 8:11 AM IT BUSINESS SYSTEMS ANALYST Inhaled Oxygen Concentration - - Weight 89.6 kg (197 lb 9.6 oz) 06/27/2024 8:11 A M IT BUSINESS SYSTEMS ANALYST Height 180.6 cm (5' 11.1) 06/27/2024 8:11 AM CS T Body Mass Index 27.48 06/27/2024 8:11 AM IT BUSINESS SYSTEMS ANALYST Plan of Treatment Upcoming Encounters Date Type Department Care Team (Late st Contact Info) Description 08/22/2024 8:00 AM CDT Office Visit [facility] [address] [place] [address] Owen Diaz MD [address] [place] [address] 12/26/2024 8:55 AM CDT Office Visit [facility] [address] [place] [address] Wiley Ponce DO [address] [place] [address] Health Maintenance Due Date Last Done Comments [...] A1C MONITORING (POCT) Routine 06/27/2024 9:34 AM IT BUSINESS SYSTEMS ANALYST Controlled type 2 diabetes mellitus with complication, without long-term current use of insulin (HC) BASIC METABOLIC PANEL Routine 06/27/2024 9:33 AM IT BUSINESS SYSTEMS ANALYST Controlled type 2 diabetes mellitus with complication, without long-term current use of insulin (HC) HTN (hypertension) XR KNEE 3 VIEWS RIGHT Routine 06/27/2024 9:15 AM IT BUSINESS SYSTEMS ANALYST Chronic pain of right knee URINE ALBUMIN TO CREATININE RATIO, RANDOM Routine 06/27/2024 8:40 AM IT BUSINESS SYSTEMS ANALYST Controlled type 2 diabetes mellitus with complication, [...] POCT Hemoglobin A1C Monitoring (06/27/2024 9:34 AM IT BUSINESS SYSTEMS ANALYST) [facility] POC HEMOGLOBIN A1C 6.7(H) <6.0 % OF TOTAL HGB [facility] Comment: Any point of care results exhibiting inconsistency with the patient's clinical status should be repeated using a different testing method. Blood BLOOD SPECIMEN / Unknown 06/27/2024 9:34 AM IT BUSINESS SYSTEMS ANALYST 06/27/2024 9:34 AM IT BUSINESS SYSTEMS ANALYST Wiley Ponce DO CHEMISTRY Final Result [facility] [address] [place] [address], [facility] [address] [place] [address] * (ABNORMAL) BASIC METABOLIC PANEL (06/27/2024 9:33 AM IT BUSINESS SYSTEMS ANALYST) [facility] GLUCOSE 165(H) 65 - 99 mg/dL [facility] Comment: Fasting reference interval For [...] BLOOD SPECIMEN / Unknown 06/27/2024 9:33 AM IT BUSINESS SYSTEMS ANALYST 06/27/2024 9:33 AM IT BUSINESS SYSTEMS ANALYST us Wiley Ponce DO CHEMISTRY Final Result [facility] [address] [place] [address], [place] [phone] [facility] [address] [place] [address] * XR KNEE 3 VIEWS RIGHT (06/27/2024 9:15 AM IT BUSINESS SYSTEMS ANALYST) Anatomical Region Laterality Modality KNEES, KNEE R Computed Radiogr aphy 06/27/2024 10:2 9 AM IT BUSINESS SYSTEMS ANALYST Impressions 06/27/2024 10:29 AM IT BUSINESS SYSTEMS ANALYST 1. 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 Dictated by Ryan Izquierdo MD @ 06/27/2024 10:29:33 AM Dictated by: Ryan Izquierdo MD @ 06/27/2024 10:29:39 (Electronically Signed) Narrative 06/27/2024 10:29 AM IT BUSINESS SYSTEMS ANALYST For Patients: As a result of the [...] @ 06/27/2024 10:29:39 (Electronically Signed) us [employer]i [employer] DO GENERAL IMAGING Final Result * (ABNORMAL) URINE ALBUMIN TO CREATININE RATIO, RANDOM (06/27/2024 8:40 AM IT BUSINESS SYSTEMS ANALYST) ALB RAND URINE 153.0 mg/L 06/27/2024 2:50 PM IT BUSINESS SYSTEMS ANALYST [facility] CREATININE,URIN E 1.10 g/L 06/27/2024 2:50 PM IT BUSINESS SYSTEMS ANALYST [facility] ALBUMIN TO CREATININE RATIO,RAND UR 139.1(H) <30.0 mg/g creat 06/27/2024 2:50 PM IT BUSINESS SYSTEMS ANALYST [facility] Urine URINE SPECIMEN / Unknown Non-Blood / Unknown 06/27/2024 8:40 AM IT BUSINESS SYSTEMS ANALYST 06/27/2024 8:40 AM IT BUSINESS SYSTEMS ANALYST Narrative [facility] - 06/27/2024 2:50 PM IT BUSINESS SYSTEMS ANALYST If Albumin to Creatinine Ratio is elevated, consider the following: Elevations seen with incipient nephropathy associated with diabetes mellitus or hypertension. Stress, exercise,hematuria, and urinary tract infection may also produce elevated results. If clinically indicated, confirm with 24 Hour Albumin to Creatinine Ratio. us Adei [employer] DO URINE Final Result [facility] [address] [place] [address], [place] * CT CHEST SCREENING LOW DOSE WO CONTRAST [[id number]] (10/24/2023 9:06 AM CDT) Anatomical Region Laterality [...] - 199 mg/dL 10/10/2023 6:06 PM CDT [facility] Comment: Cholesterol, Total Reference Ranges Desirable <200 mg/dL Borderline 200-239 mg/dL High >=240 mg/dL TRIGLYCERIDES 186(H) <150 mg/dL 10/10/2023 6:06 PM CDT [facility] HDL CHOLESTEROL 56 >40 mg/dL 6:06 PM CDT [facility] NON-HDL CHOLESTEROL 134 <145 mg/dl 10/10/2023 6:06 PM CDT [facility] CHOL/HDL RATIO 3.39 <4.50 10/10/2023 6:06 PM CDT [facility] LDL CHOLESTEROL 97 <=130 mg/dL 10/10/2023 6:06 PM CDT [facility] VLDL CHOLESTEROL 37(H) <=30 mg/dL 10/10/2023 6:06 PM CDT [facility] PROVIDER ORDERED STATUS RANDOM 10/10/2023 6:06 PM CDT [facility] Blood BLOOD SPECIMEN / Unknown Venipuncture / Unknown 10/10/2023 8:25 AM CDT 10/10/2023 8:27 AM CDT us Wiley Ponce DO CHEMISTRY Final Result [facility] [address] [place] [address], [place] * US ABD AORTA SCREENING [[id number]] (02/13/2020 7:52 AM CDT) Anatomical Region Laterality [...] trish Non-React trish 08/12/2019 2:43 PM CDT [email or web address] Comment:Antibodies to HCV no t detected; does not exclude the possibility of exposure to HCV. Blood BLOOD SPECIMEN / Unknown Venipuncture / Unknown 08/12/2019 8:48 AM CDT 08/12/2019 8:48 AM CDT Wendy LEDESMA SEND OUTS Final Result [facility] [employer] [address] [place] [address], [place] from Last 3 Months or Most Recently Relevant to Health Maintenance Insurance [address] [id number] [facility]/MSHO [address] [place] [id number] [facility] Care Teams Poultryman Relationship Specialty Start Date End Date Wiley Ponce DO [address] [place] [address] PCP - General Family Practice 08/16/22
[2024-08-01 10:53] LABS: Bilirubin Total* 0.9 mg/dL (0.1-1.5)
--- NOTE | 2024-08-01 11:51 | CRLHL7_ITS ---
For Patients: As a result of the Century Cures Act, medical imaging exams and procedure reports are released immediately into your electronic medical record. You may view this report before your referring provider. If you have questions, please contact your health care provider. Indication: RIGHT HIP PAIN, FALL, NEGATIVE XR Technique: Noncontrast CT of the pelvis according to the routine protocol. Comparison: July 2021 and radiographs same day Findings: Acute nondisplaced comminuted fracture of the anterior 3rd right acetabulum extending to the joint space. Additional acute nondisplaced right inferior pubic ramus fracture. Bony mineralization is age-appropriate. Bilateral SI joint arthrosis. Multilevel lumbar spondylosis. Bilateral small fat containing inguinal hernias. Visualized portions of the abdomen and pelvis show no acute process. Circumferential wall thickening of the urinary bladder. This may be secondary to muscular hypertrophy in the setting of chronic outlet obstruction from an enlarged prostate.. Small fat containing umbilical hernia. Impression: Acute nondisplaced comminuted fracture of the anterior 3rd right acetabulum extending to the joint space. Additional acute nondisplaced right inferior pubic ramus fracture. Please note that all CT scans at this facility use dose modulation, iterative reconstruction, and/or weight-based dosing when appropriate to reduce radiation dose to as low as reasonably achievable. Dictated by Genaro Pepe MD @ 08/01/2024 12:21:07 PM (Electronically Signed)
--- NOTE | 2024-08-01 15:02 | PM.IMHP1 ---
Hospitalist- H&P: KIRSTIN History of Present Illness Date Seen: 08/01/24 Chief complaint: fall Narrative: Abad Mendoza is a 74 year old male with past medical history of hypertension, hyperlipidemia, fatty liver, ETOH use disorder, nicotine use disorder, who presented to the ED after a fall. Patient states last night ~ 9:00 p.m. he went outside to have a smoke, and he slipped falling to his right side, hitting his right elbow and right hip to on the ground. Patient denies hitting head injury. He states that he was awake all the time and he denied blacking out. He is currently not on any blood thinners. Was able to crawl back to his home and into bed. He woke up this morning, 3:45 minutes get out of bed and go to the bathroom. Pain persisted so he called EMS. patient denies history of alcohol withdrawal or seizures. Denied cardiac or pulmonary issues. CT pelvis without IV contrast : Acute nondisplaced comminuted fracture of the anterior 3rd right acetabulum extending to the joint space. Additional acute nondisplaced right inferior pubic ramus fracture. ED provider contacted Orthopedic Service who evaluated the patient and decided that it is a nonsurgical case. Patient was admitted for P.T./OT evaluation and treatment, pain management, in addition to social service consult to evaluate patient's social situation and the need for rehab after discharge. Patient mentioned that he lives alone. Review of Systems Status of ROS: Reports: 6 or more systems reviewed and unremarkable except as noted in History and below [facility] Medical History (Updated 08/01/24 @ 19:07 by Mariella Arias MD) Fatty liver ?K76.0 - Fatty (change of) liver, not elsewhere classified (ICD-10) Alcohol use disorder ?F10.90 - Alcohol use, unspecified, uncomplicated (ICD-10) Diabetes ?E11.9 - Type 2 diabetes mellitus without complications (ICD-10) Hyperlipidemia ?E78.5 - Hyperlipidemia, unspecified (ICD-10) Hypertension ?I10 - Essential (primary) hypertension (ICD-10) Social History What is your current living situation?: I presently have a place to live Problems where you live: no known problems Problems where you live details: N/A In the past 12 months, utilities in danger of being shut off: no In past 12 months, lack of transportation kept you from medical appts, meetings, work, or getting things needed for daily living: no In the past 12 mos, have been you worried that your food would run out before you had money to buy more?: never true In the past 12 mos, the food you bought just didn't last and you didn't have money to buy more?: never true Smoking Status: Current every day smoker What tobacco products do you use: cigarettes Smoking packs per day: 0.75 Smoking cigarettes per day: 15.0 Do you use any of these nicotine containing products: None Second hand tobacco smoke exposure: No How often do you have a drink containing alcohol: never How many standard drinks containing alcohol do you have on a typical day: 5 or 6 How often do you have six or more drinks on one occasion: Daily or almost daily AUDIT-C Alcohol total score: 6 Non-prescribed substance use: denies use How often does anyone, including family, friends and others, physically hurt you: never How often does anyone, including family, friends and others, insult or talk down to you: never How often does anyone, including family, friends and others, threaten you with harm: never How often does anyone, including family, friends and others, scream or curse at you: never service: No Meds Home Medications and Allergies Home Medications ?Medication ?Instructions ?Recorded ?Confirmed ?Type amlodipine 5 mg tablet 5 mg PO DAILY 08/01/24 08/01/24 History atorvastatin 40 mg tablet 40 mg PO HS 08/01/24 08/01/24 History dapagliflozin propanediol 5 mg 5 mg PO DAILY 08/01/24 08/01/24 History tablet (Farxiga) ezetimibe 10 mg tablet 10 mg PO DAILY 08/01/24 08/01/24 History losartan 100 mg tablet 100 mg PO DAILY 08/01/24 08/01/24 History metformin 500 mg tablet,extended 1,500 mg PO QPM 08/01/24 08/01/24 History release 24 hr Allergies Allergy/AdvReac Type Severity Reaction Status Date / Time Penicillins Allergy Unknown Verified 08/01/24 09:50 Exam Narrative: Exam Narrative: Physical exam GENERAL: Comfortable, no acute distress. HEAD AND NECK: Atraumatic, normocephalic CARDIOVASCULAR: RRR. Normal S1, S2. No murmurs. RESPIRATORY: Clear to auscultation B/L. Good air entry B/L. No wheezes or rhonchi. MSK: Rt LE shortened and externally rotated. NEUROLOGY: Alert, awake, oriented X 3. Normal speech. PSYCH: Normal mood, normal affect. Const: Vital Signs, click to edit/add: Vital Signs - 24 hr 08/01/24 09:45 08/01/24 09:46 08/01/24 09:46 Temperature 99.1 F Pulse Rate [Right Pulse Oximeter] 101 H Respiratory Rate 18 Blood Pressure [Ri ght Upper Arm] 186/96 H Pulse Oximetry 95 91 91 Oxygen Delivery Me thod Room Air 08/01/24 09:47 08/01/24 09:50 08/01/24 10:00 Temperature Pulse Rate [Right Pulse Oximeter] Respiratory Rate Blood Pressure [Ri ght Upper Arm] Pulse Oximetry 94 95 91 Oxygen Delivery Me thod 08/01/24 10:10 08/01/24 11:09 08/01/24 11:10 Temperature Pulse Rate [Right Pulse Oximeter] Respiratory Rate Blood Pressure [Ri ght Upper Arm] Pulse Oximetry 94 91 92 Oxygen Delivery Me thod 08/01/24 11:11 08/01/24 11:20 08/01/24 11:30 Temperature Pulse Rate [Right Pulse Oximeter] Respiratory Rate Blood Pressure [Ri ght Upper Arm] Pulse Oximetry 93 90 92 Oxygen Delivery Me thod 08/01/24 11:32 08/01/24 11:40 08/01/24 11:50 Temperature Pulse Rate [Right Pulse Oximeter] Respiratory Rate Blood Pressure [Ri ght Upper Arm] Pulse Oximetry 93 94 96 Oxygen Delivery Me thod 08/01/24 12:08 08/01/24 12:10 08/01/24 12:20 Temperature Pulse Rate [Right Pulse Oximeter] Respiratory Rate Blood Pressure [Ri ght Upper Arm] Pulse Oximetry 94 92 93 Oxygen Delivery Me thod 08/01/24 12:30 08/01/24 12:32 08/01/24 12:40 Temperature Pulse Rate [Right Pulse Oximeter] Respiratory Rate Blood Pressure [Ri ght Upper Arm] Pulse Oximetry 94 94 92 Oxygen Delivery Me thod 08/01/24 12:50 08/01/24 13:00 08/01/24 13:01 Temperature Pulse Rate [Right Pulse Oximeter] Respiratory Rate Blood Pressure [Ri ght Upper Arm] Pulse Oximetry 95 93 93 [facility] 13:10 08/01/24 13:20 08/01/24 13:30 Temperature Pulse Rate [Right Pulse Oximeter] Respiratory Rate Blood Pressure [Ri ght Upper Arm] Pulse Oximetry 93 94 93 [facility] 08[facility]01/24 13:32 08/01/24 13:40 08/01/24 13:50 Temperature Pulse Rate [Right Pulse Oximeter] Respiratory Rate Blood Pressure [Ri ght Upper Arm] Pulse Oximetry 96 97 94 Oxygen Delivery [facility] Hospitalist - H&P: Result Labs Labs: Short CBC 08/01/24 Range/Units 10:24 WBC 10.60 (4.50-11.00) K/uL Hgb 14.7 (13.5-17.5) gm/dL Hct 42.0 (37.0-53.0) % Plt Count 156 (140-440) K/uL BMP 08/01/24 10:24 Sodium 136 Potassium 4.3 Chloride 102 Carbon Dioxide 25 BUN 19 Creatinine 0.9 Glucose 162 H Calcium 9.2 Liver Function 08/01/24 Range/Units 10:24 Total Bilirubin 0.9 (0.1-1.5) mg/dL AST 31 (12-35) U/L ALT 30 (4-50) U/L Alkaline Phosphatase 73 (40-150) U/L Albumin 4.7 (3.3-5.0) g/dL Imaging CT- Other: Radiologist's impression: Technique: Noncontrast CT of the pelvis according to the routine protocol. Comparison: July 2021 and radiographs same day Findings: Acute nondisplaced comminuted fracture of the anterior 3rd right acetabulum extending to the joint space. Additional acute nondisplaced right inferior pubic ramus fracture. Bony mineralization is age-appropriate. Bilateral SI joint arthrosis. Multilevel lumbar spondylosis. Bilateral small fat containing inguinal hernias. Visualized portions of the abdomen and pelvis show no acute process. Circumferential wall thickening of the urinary bladder. This may be secondary to muscular hypertrophy in the setting of chronic outlet obstruction from an enlarged prostate.. Small fat containing umbilical hernia. Impression: Acute nondisplaced comminuted fracture of the anterior 3rd right acetabulum extending to the joint space. Additional acute nondisplaced right inferior pubic ramus fracture. Please note that all CT scans at this facility use dose modulation, iterative reconstruction, and/or weight-based dosing when appropriate to reduce radiation dose to as low as reasonably achievable. Dictated by Genaro Pepe MD @ 08/01/2024 12:21:07 PM Assessment and Plan Assessment and plan (1) Fracture of ramus of right pubis: Problem comment: -CT pelvis without IV contrast : Acute nondisplaced comminuted fracture of the anterior 3rd right acetabulum extending to the joint space. Additional acute nondisplaced right inferior pubic ramus fracture. ED provider contacted Orthopedic Service who evaluated the patient and decided that it is a nonsurgical case. - P.T./OT evaluation and treatment. -pain management. -social service consult to evaluate patient's social situation and the need for rehab after discharge. Patient mentioned that he lives alone. Status: Acute (2) Closed right acetabular fracture: Problem comment: -As above Status: Acute (3) Fall: Problem comment: -He slipped falling to his right side, hitting his right elbow and right hip to on the ground. -Patient denies hitting head injury. -He states that he was awake all the time and he denied blacking out. Status: Acute (4) Fatty liver: Problem comment: -patient denies any history of ascites he or hematemesis Status: Chronic (5) Alcohol use disorder: Problem comment: -patient denies history of alcohol withdrawal or seizures -ordered CIWA Status: Acute (6) Diabetes: Problem comment: -ON METFORMIN AND DAPAGLIFLOZIN AT HOME -ordered low-dose sliding scale insulin Status: Acute (7) Tobacco use disorder: Problem comment: declined nicotine patch Status: Acute (8) Hypertension: Problem comment: -resumed home medication, losartan and amlodipine Status: Acute (9) Hyperlipidemia: Problem comment: -resumed his statin Status: Acute Total Time Spent Total Time Spent: Time spent: Today I spent 75 minutes seeing the patient, discussing the patient with ER staff, reviewing Expanse and EPIC notes/diagnostics, discussing the care plan with our care time that includes social work, PT/OT, pharmacy, RT, long term and documenting my impressions and plan in the medical record.
[2024-08-01] MEDS: THIAMINE 100 MG TABLET PO (15:51)
[2024-08-01] MEDS: 0.9 % SODIUM CHLORIDE 1000 ml 1,000 ML 75 ML IV (16:00)
[2024-08-01] MEDS: MORPHINE 4 MG/ML INJ IVP (18:48)
[2024-08-01] MEDS: ENOXAPARIN 40 MG/0.4 ML INJ SUBCUT (20:47)
[2024-08-01] MEDS: SODIUM CHLORIDE 0.9 % (FLUSH) 10 ML SYRINGE 5 ML IVF (20:48)
[2024-08-01] MEDS: ATORVASTATIN CALCIUM 40 MG TABLET PO (20:48)
[2024-08-02] VITALS (12 sets, daily range): BP systolic 154–183; BP diastolic 88–103; PULSE 96–112; RESP 16–20; TEMP 36.7–37; O2SAT 92–97
[2024-08-02] MEDS: ACETAMINOPHEN 325 MG TABLET 650 MG PO (00:02)
[2024-08-02 06:50] LABS: Hematocrit 39.7 % (37.0-53.0); Hemoglobin* 13.6 gm/dL (13.5-17.5); Mean Corpuscular HGB Conc 34 gm/dL (32-36); Mean Corpuscular Hemoglobin 31 pg (26-34); Mean Corpuscular Volume 92 fL (80-100); Platelet Count* 139 K/uL (140-440); Red Blood Count 4.33 m/uL (4.30-5.90); White Blood Count* 7.94 K/uL (4.50-11.00)
--- NOTE | 2024-08-02 07:05 | PC.NURSE ---
23-07: pleasant and cooperative. Uses urinal indep. Bedrest. PT/OT/SW to consult. CIWAs 0. no c/o pain at rest, increased pain/shooting pain with coughing. Tylenol given prn. ?
[2024-08-02 07:10] LABS: Slide Review Reflex No
[2024-08-02 07:12] LABS: Albumin* 4.1 g/dL (3.3-5.0); Chloride* 100 mmol/L (96-114); Potassium* 3.9 mmol/L (3.6-5.1); Sodium* 131 mmol/L (135-149)
[2024-08-02 07:15] LABS: Alanine Aminotransferase* 24 U/L (4-50); Alkaline Phosphatase* 66 U/L (40-150); Anion Gap 10 mEq/L (7-15); Aspartate Amino Transferase* 24 U/L (12-35); Bilirubin Total* 1.4 mg/dL (0.1-1.5); Blood Urea Nitrogen* 15 mg/dL (7-30); Calcium* 8.6 mg/dL (8.4-10.6); Carbon Dioxide* 21 mmol/L (20-32); Creatinine* 0.8 mg/dL (0.5-1.5); Est. Creatinine Clearance* 75.46; Estimated Glomerular Filt Rate 94 ml/min; Glucose* 134 mg/dL (60-115); Total Protein* 6.6 g/dL (6.0-8.3)
[2024-08-02 07:16] LABS: Magnesium* 1.8 mg/dL (1.5-2.6)
[2024-08-02] MEDS: INSULIN ASPART 100 UNIT/ML SUBCUT (08:15)
[2024-08-02] MEDS: EZETIMIBE 10 MG TABLET PO (08:22)
[2024-08-02] MEDS: FOLIC ACID 1 MG TABLET PO (08:22)
[2024-08-02] MEDS: LOSARTAN POTASSIUM 50 MG TABLET 100 MG PO (08:22)
[2024-08-02] MEDS: MULTIVITAMIN/MINERALS 1 TABLET 1 TAB PO (08:23)
[2024-08-02] MEDS: AMLODIPINE 5 MG TABLET PO (08:23)
[2024-08-02] MEDS: SODIUM CHLORIDE 0.9 % (FLUSH) 10 ML SYRINGE 5 ML IVF (08:25)
[2024-08-02] MEDS: LIDOCAINE 5% PATCH 1 PATCH TRANSDERMA (10:33)
--- NOTE | 2024-08-02 11:31 | NUTR.NU ---
RDN with nutrition screen related to positive skin risk and diet education related to diabetic diet order. Patient admitted with pelvis and right elbow fractures. Current weight 190lb; height 6ft 1in; BMI 25.1 kg/m2. Medical history includes but not limited to hypertension, hyperlipidemia, fatty liver, ETOH use disorder, nicotine use disorder and type 2 diabetes. No weight history, however patient reports a stable weight. Current diet is diabetic. Meal intake this morning was 100%. RDN visited with patient whom reports not following a specific diet at home. Offered diet education related to diabetes, patient declined at this time. He reports living alone. He has not questions or concerns at this time. No nutrition interventions at this time with stable weight and good intakes. RDN will continue to monitor and follow-up prn.
--- NOTE | 2024-08-02 12:31 | PC.SOCIAL ---
Addendum entered by JESSI Juarez 08/02/24 17:24: Discharge planning: reworker did hear back that [facility] is not able to accept the pt at this time due to being at capacity in this region. The referral is still out to [facility] Social work to follow-up as needed. Addendum entered by JESSI Juarez 08/02/24 16:08: Discharge planning: Pt is being recommended for PT/OT home care. reworker sent the referral to [facility] at fax #[phone] and also to [facility]. at fax number #[phone]. Social work to follow-up as needed. Original Note: Discharge planning: reworker met with pt to discuss discharge planning. Pt stated he would like to be able to go home after the hospital. Pt is in observation status and would need to private pay for a SNF if that is the recommendation at discharge for the pt. reworker talked to PT and the provider on duty. Pt is moving pretty well on his own and should be able to return home on his own. Pt will stay in the hospital one more night and most likely discharge home tomorrow(Monday). Social work to follow-up as needed.
--- NOTE | 2024-08-02 12:36 | PM.IMPN1 ---
Progress Note: A&P Assessment and plan (1) Fracture of ramus of right pubis: Problem details: -CT pelvis without IV contrast: Acute nondisplaced comminuted fracture of the anterior 3rd right acetabulum extending to the joint space. Additional acute nondisplaced right inferior pubic ramus fracture. ED provider contacted Orthopedic Service who evaluated the patient and decided that it is a nonsurgical case. - PT/OT following - transition from IV to oral pain medications 08/02 - met with SW on 08/02, declining SNF at this time - would benefit from one more day in hospital to evaluate response to oral pain medications, monitor for withdrawal, therapies Status: Acute (2) Closed right acetabular fracture: Problem details: - As above Status: Acute (3) Fall: Problem details: - mechanical fall, no concerning neuro deficits Status: Acute (4) Alcohol use disorder: Problem details: - daily drinking for years, last ETOH 08/01 - no history of withdrawal, following CIWAs Status: Acute (5) Diabetes: Problem details: - ON METFORMIN AND DAPAGLIFLOZIN AT HOME, last A1C 6.7 05/2024 - Renee Ponce is PCP - ordered low-dose sliding scale insulin Status: Acute (6) Tobacco use disorder: Problem details: - denies nicotine patch, replacement prn Status: Acute (7) Hypertension: Problem details: - resumed home meds: losartan and amlodipine Status: Acute Plan - per above (transition to po pain medications, monitor for w/d, continue therapies) - patient understands that he will likely be ready for d/c home on 08/03 with assistance Subjective Date Seen: 08/02/24 Interval history: Frankie was admitted last night after a mechanical fall at home. Fell onto R elbow (no pain, full ROM, reassuring imaging), and R side (acetabular fracture, R inferior pubic ramus fracture). Unable to safely ambulate or discharge, admitted for pain management and therapies. Ortho consulted by phone, WBAT and no surgical needs identified. This morning, patient seeing PT, OT, LARRY. Exam Narrative: Exam Narrative: GEN: Alert and oriented, sitting comfortably in bedside chair HEENT: EOMIs bilaterally, no scleral icterus CV: RRR, No concerning murmurs R: LCTA bilaterally without concerning wheezing Ext: wwp, no concerning edema, full ROM of R elbow Skin: R elbow covered (skin abrasions), no other concerning skin lesions noted Neuro: No focal deficits Psych: Appropriate Const: Vital Signs, click to edit/add: Vital Signs - 24 hr 08/01/24 12:40 08/01/24 12:50 08/01/24 13:00 Temperature Pulse Rate [Pulse Oximeter] Pulse Rate [Right Radial] Respiratory Rate Blood Pressure [Ri ght Arm] Pulse Oximetry 92 95 93 Oxygen Delivery Me thod 08/01/24 13:01 08/01/24 13:10 08/01/24 13:20 Temperature Pulse Rate [Pulse Oximeter] Pulse Rate [Right Radial] Respiratory Rate Blood Pressure [Ri ght Arm] Pulse Oximetry 93 93 94 Oxygen Delivery Me thod 08/01/24 13:30 08/01/24 13:32 08/01/24 13:40 Temperature Pulse Rate [Pulse Oximeter] Pulse Rate [Right Radial] Respiratory Rate Blood Pressure [Ri ght Arm] Pulse Oximetry 93 96 97 Oxygen Delivery Me thod 08/01/24 13:50 08/01/24 15:01 08/01/24 15:22 Temperature 99 F 99 F Pulse Rate [Pulse Oximeter] Pulse Rate [Right Radial] Respiratory Rate 18 18 Blood Pressure [Ri ght Arm] 184/96 H 184/96 H Pulse Oximetry 94 94 94 Oxygen Delivery Mo thod Room Air Room Air 08/01/24 15:22 08/01/24 16:00 08/01/24 19:53 Temperature 99 F Pulse Rate [Pulse Oximeter] Pulse Rate [Right Radial] 95 Respiratory Rate 18 20 20 Blood Pressure [Ri ght Arm] 185/94 H Pulse Oximetry 94 94 Oxygen Delivery Mo thod Room Air Room Air 08/01/24 20:43 08/01/24 23:30 08/01/24 23:30 Temperature 99 F Pulse Rate [Pulse Oximeter] 102 H Pulse Rate [Right Radial] 95 102 H Respiratory Rate 20 20 20 Blood Pressure [Ri ght Arm] 185/94 H 180/108 H Pulse Oximetry 94 93 Oxygen Delivery Me thod Room Air Room Air 08/02/24 04:00 08/02/24 07:00 08/02/24 07:30 Temperature 98.1 F 98.6 F Pulse Rate [Pulse Oximeter] 96 112 H 112 H Pulse Rate [Right Radial] Respiratory Rate 20 18 18 Blood Pressure [Ri ght Arm] 171/97 H 178/101 H Pulse Oximetry 94 97 Oxygen Delivery Me thod Room Air Room Air 08/02/24 09:00 08/02/24 11:00 Temperature 98.6 F 98.2 F Pulse Rate [Pulse Oximeter] 112 H 97 Pulse Rate [Right Radial] Respiratory Rate 18 20 Blood Pressure [Ri ght Arm] 178/101 H 167/90 H Pulse Oximetry 97 93 Oxygen Delivery Me thod Room Air Room Air Labs Labs: Laboratory Results - last 24 hr 08/02/24 06:17 WBC 7.94 RBC 4.33 Hgb 13.6 Hct 39.7 MCV 92 MCH 31 MCHC 34 Plt Count 139 L Sodium 131 L Potassium 3.9 Chloride 100 Carbon Dioxide 21 Anion Gap 10 BUN 15 Creatinine 0.8 Estimated Creat Clear 75.46 Estimated GFR 94 Glucose 134 H Calcium 8.6 Magnesium 1.8 Total Bilirubin 1.4 AST 24 ALT 24 Alkaline Phosphatase 66 Total Protein 6.6 Albumin 4.1
[2024-08-02] MEDS: ACETAMINOPHEN 325 MG TABLET 975 MG PO (12:59)
[2024-08-02] MEDS: OXYCODONE 5 MG TABLET PO ×2 (12:59→19:42)
[2024-08-02] MEDS: THIAMINE 100 MG TABLET PO (16:53)
--- NOTE | 2024-08-02 18:59 | PC.NURSE ---
VSS. Patient denies pain at rest, pain increases with activity. Mepilex on elbow, clean dry and intact. Denies N/V/SOB. Lidocaine patch applied on R hip. CIWAs are negative. Ambulates to bathroom SBA with gait belt and walker. Administered Oxy once, with relief noted see EMAR.
[2024-08-02] MEDS: METFORMIN ER 500 MG 1500 MG PO (19:17)
[2024-08-02] MEDS: ATORVASTATIN CALCIUM 40 MG TABLET PO (21:14)
[2024-08-02] MEDS: ENOXAPARIN 40 MG/0.4 ML INJ SUBCUT (21:16)
[2024-08-02] MEDS: LORazepam 1 MG TABLET PO (22:12)
--- NOTE | 2024-08-02 23:35 | PM.IMPN1 ---
Progress Note: A&P Assessment and plan (1) Closed right acetabular fracture: Problem details: - As above Status: Acute (2) Fracture of ramus of right pubis: Problem details: -CT pelvis without IV contrast: Acute nondisplaced comminuted fracture of the anterior 3rd right acetabulum extending to the joint space. Additional acute nondisplaced right inferior pubic ramus fracture. ED provider contacted Orthopedic Service who evaluated the patient and decided that it is a nonsurgical case. - PT/OT following - transition from IV to oral pain medications 08/02 - met with SW on 08/02, declining SNF at this time - would benefit from one more day in hospital to evaluate response to oral pain medications, monitor for withdrawal, therapies Status: Acute (3) Fall: Problem details: - mechanical fall, no concerning neuro deficits Status: Acute (4) Hypertension: Problem details: - resumed home meds: losartan and amlodipine Status: Acute (5) Hyperlipidemia: Problem details: - resumed his statin Status: Acute (6) Diabetes: Problem details: - ON METFORMIN AND DAPAGLIFLOZIN AT HOME, last A1C 6.7 05/2024 - Renee Ponce is PCP - ordered low-dose sliding scale insulin Status: Acute (7) Alcohol use disorder: Problem details: - daily drinking for years, last ETOH 08/01 - no history of withdrawal, following CIWAs Status: Acute (8) Tobacco use disorder: Problem details: - denies nicotine patch, replacement prn Status: Acute (9) Fatty liver: Problem details: - noted, patient denies any history of ascites he or hematemesis Status: Chronic Subjective Date Seen: 08/03/24 Exam Const: Vital Signs, click to edit/add: Vital Signs - 24 hr 08/02/24 04:00 08/02/24 07:00 08/02/24 07:30 Temperature 98.1 F 98.6 F Pulse Rate [Pulse Oximeter] 96 112 H 112 H Respiratory Rate 20 18 18 Blood Pressure [Ri ght Arm] 171/97 H 178/101 H Pulse Oximetry 94 97 Oxygen Delivery Me thod Room Air Room Air 08/02/24 09:00 08/02/24 11:00 08/02/24 13:00 Temperature 98.6 F 98.2 F 98.5 F Pulse Rate [Pulse Oximeter] 112 H 97 101 H Respiratory Rate 18 20 18 Blood Pressure [Ri ght Arm] 178/101 H 167/90 H 154/88 H Pulse Oximetry 97 93 94 Oxygen Delivery Me thod Room Air Room Air Room Air 08/02/24 15:00 08/02/24 15:00 08/02/24 17:00 Temperature 98.5 F 98.3 F Pulse Rate [Pulse Oximeter] 101 H 101 H 101 H Respiratory Rate 18 18 18 Blood Pressure [Ri ght Arm] 154/88 H 182/102 H Pulse Oximetry 94 94 Oxygen Delivery Me thod Room Air Room Air 08/02/24 19:38 08/02/24 19:44 08/02/24 22:10 Temperature 98.2 F 98.2 F 98.5 F Pulse Rate [Pulse Oximeter] 100 100 102 H Respiratory Rate 18 18 16 Blood Pressure [Ri ght Arm] 182/103 H 182/103 H 183/93 H Pulse Oximetry 94 94 92 Oxygen Delivery Me thod Room Air Room Air Room Air 08/02/24 22:13 Temperature 98.5 F Pulse Rate [Pulse Oximeter] 102 H Respiratory Rate 16 Blood Pressure [Ri ght Arm] 183/93 H Pulse Oximetry 92 Oxygen Delivery Me thod Room Air Labs Labs: Laboratory Results - last 24 hr 08/02/24 06:17 WBC 7.94 RBC 4.33 Hgb 13.6 Hct 39.7 MCV 92 MCH 31 MCHC 34 Plt Count 139 L Sodium 131 L Potassium 3.9 Chloride 100 Carbon Dioxide 21 Anion Gap 10 BUN 15 Creatinine 0.8 Estimated Creat Clear 75.46 Estimated GFR 94 Glucose 134 H Calcium 8.6 Magnesium 1.8 Total Bilirubin 1.4 AST 24 ALT 24 Alkaline Phosphatase 66 Total Protein 6.6 Albumin 4.1
[2024-08-03 02:58] VITALS: BP 155/79; PULSE 110; RESP 18; TEMP 37.1; O2SAT 94
[2024-08-03 03:00] VITALS: BP 155/79; PULSE 102; PULSE 110; RESP 18; TEMP 37.1; O2SAT 94
--- NOTE | 2024-08-03 06:18 | PC.NURSE ---
End of shift [id number]: A&O pleasant and cooperative. Pt hypertensive and tachy overnight VS otherwise stable. MD updated. See orders. CIWAS unremarkable. Rating pain in right hip . See eMAR for interventions. Up with A1. Tolerates well. Using call light appropriately.
[2024-08-03 06:41] LABS: Basophils Absolute Auto 0.06 K/uL (0.00-0.30); Basophils Percent Auto 0.8 % (0.0-3.0); Eosinophils Absolute Auto 0.12 K/uL (0.00-0.50); Eosinophils Percent Auto 1.6 % (0.0-7.0); Hematocrit 40.3 % (37.0-53.0); Hemoglobin* 13.9 gm/dL (13.5-17.5); Immature Granulocytes Abs Auto 0.01 K/uL (0.00-0.30); Immature Granulocytes Pct Auto 0.1 %; Lymphocytes Percent Auto 16.4 % (20-44); Mean Corpuscular HGB Conc 35 gm/dL (32-36); Mean Corpuscular Hemoglobin 32 pg (26-34); Mean Corpuscular Volume 91 fL (80-100); Monocytes Percent Auto 8.5 % (0.0-11.0); Neutrophils Percent Auto 72.6 % (42.0-72.0); Platelet Count* 135 K/uL (140-440); RDW Coefficient of Variation % 12.1 % (11.5-15.5); Red Blood Count 4.41 m/uL (4.30-5.90)
[2024-08-03 06:45] LABS: Slide Review Reflex No
[2024-08-03 06:47] LABS: Chloride* 100 mmol/L (96-114); Potassium* 3.8 mmol/L (3.6-5.1); Sodium* 131 mmol/L (135-149)
[2024-08-03 06:50] LABS: Anion Gap 11 mEq/L (7-15); Blood Urea Nitrogen* 13 mg/dL (7-30); Calcium* 8.7 mg/dL (8.4-10.6); Carbon Dioxide* 20 mmol/L (20-32); Creatinine* 0.8 mg/dL (0.5-1.5); Est. Creatinine Clearance* 75.46; Estimated Glomerular Filt Rate 94 ml/min; Glucose* 111 mg/dL (60-115)
[2024-08-03 07:00] VITALS: BP 152/99; PULSE 116; RESP 16; TEMP 37.1; O2SAT 94
[2024-08-03] MEDS: EZETIMIBE 10 MG TABLET PO (08:30)
[2024-08-03] MEDS: LOSARTAN POTASSIUM 50 MG TABLET 100 MG PO (08:30)
[2024-08-03] MEDS: AMLODIPINE 5 MG TABLET PO (08:30)
[2024-08-03] MEDS: FOLIC ACID 1 MG TABLET PO (08:30)
[2024-08-03] MEDS: MULTIVITAMIN/MINERALS 1 TABLET 1 TAB PO (08:30)
[2024-08-03] MEDS: SODIUM CHLORIDE 0.9 % (FLUSH) 10 ML SYRINGE 5 ML IVF (08:33)
[2024-08-03] MEDS: ACETAMINOPHEN 325 MG TABLET 975 MG PO (09:50)
[2024-08-03] MEDS: OXYCODONE 5 MG TABLET PO (09:51)
[2024-08-03] MEDS: LIDOCAINE 5% PATCH 1 PATCH TRANSDERMA (09:52)
[2024-08-03 11:25] VITALS: BP 190/101; PULSE 115; O2SAT 96
[2024-08-03 11:39] VITALS: BP 162/111; PULSE 111; O2SAT 95
--- NOTE | 2024-08-03 12:49 | PC.NURSE ---
Discharge: patient alert and oriented. VSS on RA. tolerating a reg. diet. Patient managing pain w/PRN oxy and tylenol. verbalizes pain improvement. Patient's IV removed. tip intact. Discharged to home today accompanied by son Owen at 1250. Patient's belongings sheet signed and discharge instructions signed. Patient verbalized understanding of instructions.
--- NOTE | 2024-08-03 15:21 | PM.DS1 ---
DS: Providers Provider Date Seen: 08/03/24 Date of admission: 08/01/24 14:32 Primary care physician: Not a Local Provider Admitting Clinician: Iveth Marsh MD Date of Discharge: 08/03/24 DS: Diagnosis Discharge Diagnosis (1) Fracture of ramus of right pubis: Status: Acute Problem details: -CT pelvis without IV contrast: Acute nondisplaced comminuted fracture of the anterior 3rd right acetabulum extending to the joint space. Additional acute nondisplaced right inferior pubic ramus fracture. ED provider contacted Orthopedic Service who evaluated the patient and decided that it is a nonsurgical case. (2) Closed right acetabular fracture: Status: Acute Problem details: Due to fall at home with concomitant right pubic ramus fracture. Insert and management. Offered fpc facility placement but he declines. Pain and mobility improved substantially during his hospital stay and he is going home with the assistance of his sons. (3) Fall: Status: Acute Problem details: - mechanical fall, no concerning neuro deficits. Fractures as above. (4) Hypertension: Status: Acute Problem details: - resumed home meds: losartan and amlodipine (5) Hyperlipidemia: Status: Acute Problem details: - resumed his statin (6) Diabetes: Status: Acute Problem details: Continue home diabetes management plan. (7) Alcohol use disorder: Status: Acute Problem details: - daily drinking for years, last ETOH 08/01 - no history of withdrawal, following CIWAs. No significant evidence of withdrawal during this hospital stay other than mild hypertension and tachycardia (8) Tobacco use disorder: Status: Acute Problem details: - denies nicotine patch, replacement prn (9) Fatty liver: Status: Chronic Problem details: - noted, patient denies any history of ascites he or hematemesis DS: Summary Hospital Course Hospital Course: Admission HPI: Abad Mendoza is a 74 year old male with past medical history of hypertension, hyperlipidemia, fatty liver, ETOH use disorder, nicotine use disorder, who presented to the ED after a fall. Patient states last night ~ 9:00 p.m. he went outside to have a smoke, and he slipped falling to his right side, hitting his right elbow and right hip to on the ground. Patient denies hitting head injury. He states that he was awake all the time and he denied blacking out. He is currently not on any blood thinners. Was able to crawl back to his home and into bed. He woke up this morning, 3:45 minutes get out of bed and go to the bathroom. Pain persisted so he called EMS. patient denies history of alcohol withdrawal or seizures. Denied cardiac or pulmonary issues. CT pelvis without IV contrast : Acute nondisplaced comminuted fracture of the anterior 3rd right acetabulum extending to the joint space. Additional acute nondisplaced right inferior pubic ramus fracture. ED provider contacted Orthopedic Service who evaluated the patient and decided that it is a nonsurgical case. Patient was admitted for P.T./OT evaluation and treatment, pain management, in addition to social service consult to evaluate patient's social situation and the need for rehab after discharge. Patient mentioned that he lives alone. During his hospital stay he was managed with pain medication and therapy. His pain and his mobility improves substantially to his hospital stay he elected to be discharged to home where he lives alone in the apartment with 1 level. His sons are available to be with him to help with the transition home. During his hospital stay he had monitoring for alcohol withdrawal and other than some elevated blood pressure and mild tachycardia he had no other signs or symptoms of alcohol withdrawal. Status at Discharge Functional status at discharge: uses cane/walker Overall status at discharge: patient is progressing back to baseline Time Spent with Patient Time attestation: Total time spent providing and/or coordinating discharge services: 40 minutes Time spent: Greater than 30 minutes Exam Narrative: Exam Narrative: He is alert and appears in no distress. He moves his left lower extremity fairly well. He has pain with any motion of the right hip. He is able to lift his leg off the bed on the right however. He has intact pulses no significant edema or tenderness in his right leg. Const: Vital Signs, click to edit/add: Vital Signs - 24 hr 08/02/24 17:00 08/02/24 19:38 08/02/24 19:44 Temperature 98.3 F 98.2 F 98.2 F Pulse Rate [Pulse Oximeter] 101 H 100 100 Pulse Rate [Right Radial] Respiratory Rate 18 18 18 Blood Pressure [Ri ght Arm] 182/102 H 182/103 H 182/103 H Pulse Oximetry 94 94 94 Oxygen Delivery Me thod Room Air Room Air Room Air 08/02/24 22:10 08/02/24 22:13 08/03/24 02:58 Temperature 98.5 F 98.5 F 98.8 F Pulse Rate [Pulse Oximeter] 102 H 102 H Pulse Rate [Right Radial] 110 H Respiratory Rate 16 16 18 Blood Pressure [Ri ght Arm] 183/93 H 183/93 H 155/79 H Pulse Oximetry 92 92 94 Oxygen Delivery Me thod Room Air Room Air Room Air 08/03/24 03:00 08/03/24 07:00 08/03/24 07:00 Temperature 98.8 F 98.8 F Pulse Rate [Pulse Oximeter] 102 H 116 H 116 H Pulse Rate [Right Radial] 110 H Respiratory Rate 18 16 16 Blood Pressure [Ri ght Arm] 155/79 H 152/99 H Pulse Oximetry 94 94 Oxygen Delivery Me thod Room Air Room Air 08/03/24 11:25 08/03/24 11:39 Temperature Pulse Rate [Pulse Oximeter] 115 H 111 H Pulse Rate [Right Radial] Respiratory Rate Blood Pressure [Ri ght Arm] 190/101 H 162/111 H Pulse Oximetry 96 95 Oxygen Delivery Me thod Room Air Room Air Documenting provider has reviewed patient's vital signs: yes DS: Data Data Completed and Pending Labs on day of discharge: Labs from last 24 hours 08/03/24 05:54 WBC 7.30 RBC 4.41 Hgb 13.9 Hct 40.3 MCV 91 MCH 32 MCHC 35 RDW Coeff of Adriana 12.1 Plt Count 135 L Neut % (Auto) 72.6 H Lymph % (Auto) 16.4 L Murray % (Auto) 8.5 Eos % (Auto) 1.6 Baso % (Auto) 0.8 Neut # (Auto) 5.30 Lymph # (Auto) 1.20 Murray # (Auto) 0.60 Eos # (Auto) 0.12 Baso # (Auto) 0.06 Abs Immat Gran (auto) 0.01 Imm/Tot Granulo (auto) 0.1 Sodium 131 L Potassium 3.8 Chloride 100 Carbon Dioxide 20 Anion Gap 11 BUN 13 Creatinine 0.8 Estimated Creat Clear 75.46 Estimated GFR 94 Glucose [address] pelvis: Radiologist's impression: Indication: RIGHT HIP PAIN, FALL, NEGATIVE XR Technique: Noncontrast CT of the pelvis according to the routine protocol. Comparison: July 2021 and radiographs same day Findings: Acute nondisplaced comminuted fracture of the anterior 3rd right acetabulum extending to the joint space. Additional acute nondisplaced right inferior pubic ramus fracture. Bony mineralization is age-appropriate. Bilateral SI joint arthrosis. Multilevel lumbar spondylosis. Bilateral small fat containing inguinal hernias. Visualized portions of the abdomen and pelvis show no acute process. Circumferential wall thickening of the urinary bladder. This may be secondary to muscular hypertrophy in the setting of chronic outlet obstruction from an enlarged prostate.. Small fat containing umbilical hernia. Impression: Acute nondisplaced comminuted fracture of the anterior 3rd right acetabulum extending to the joint space. Additional acute nondisplaced right inferior pubic ramus fracture. Discharge Plan Discharge Disposition: Home, Self-Care Date of Admission: 08/01/24 14:32 Attending Provider on Discharge: Chele Navarro Primary Care Provider: Provider,Not a Local Condition: Improved Anticipated Discharge Date/Time: 08/02/24 12:21 Discharge Medications: New acetaminophen 325 mg Tablet 975 mg PO Q8H PRNQty: 100 0RF multivitamin with folic acid [Thera] 400 mcg Tablet 1 tab PO DAILY Qty: 100 0RF oxycodone 5 mg tablet 5 mg PO Q6H PRN (Reason: pain) Qty: 20 0RF sennosides [senna] 8.6 mg tablet 8.6 mg PO BID PRN (Reason: constipation) Qty: 20 0RF Continued atorvastatin 40 mg tablet 40 mg PO HS amlodipine 5 mg tablet 5 mg PO DAILY losartan 100 mg tablet 100 mg PO DAILY metformin 500 mg tablet extended release 24 hr 1,500 mg PO QPM Patient Comments: Take 3 Tablets (1,500 mg) by mouth once daily with evening meal.* ezetimibe 10 mg tablet 10 mg PO DAILY dapagliflozin propanediol [Farxiga] 5 mg tablet 5 mg PO DAILY folic acid 400 mcg tablet 400 mcg PO DAILY multivitamin [Daily Multi-Vitamin] Tablet 1 tab PO DAILY Discharge Orders: Discharge Order (Routine); Ordered 08/03/24 Ordered By: Chele Navarro Patient Education: Acetaminophen (By mouth), Multivitamins with Minerals (By mouth), Pelvic Fracture (DC) Activity Level: Activity as Tolerated Discharge Diet: Regular Follow Up Appointments: Provider,Not a Local [Primary Care Provider] - NELSON RUBIN DO [Referring] - 08/05/24 3:45 pm (follow up in 3-5 days. Recheck basic metabolic panel in 3-5 days) Forms: [employer] Info Instructions Discharge Comments: follow up with MD in 3-5 days
--- NOTE | 2024-08-05 12:37 | PC.SOCIAL ---
Discharge planning: Pt was accepted to [facility] for PT/OT home care. [facility] will call him to set-up an intake appointment. Social work to follow-up as needed.
== END 2024-08-03 12:45 | disposition home or self-care (01) ==
LOC: ED 12:41 → MEDSURG 14:32
PROVIDERS: Family Medicine; Student in an Organized Health Care Education/Training Program; Admitting Provider Family Medicine; Emergency Provider Student in an Organized Health Care Education/Training Program; Visit Provider Family Medicine
DX: S32.591A Other specified fracture of right pubis, initial encounter for closed fracture (principal); S32.401A Unspecified fracture of right acetabulum, initial encounter for closed fracture; W19.XXXA Unspecified fall, initial encounter; R00.0 Tachycardia, unspecified; I10 Essential (primary) hypertension; E78.5 Hyperlipidemia, unspecified; E11.9 Type 2 diabetes mellitus without complications; F10.90 Alcohol use, unspecified, uncomplicated; F17.200 Nicotine dependence, unspecified, uncomplicated; K76.0 Fatty (change of) liver, not elsewhere classified
CPT/HCPCS: 36415; 71045; 72192; 73080; 73502; 80048; 80053; 82962; 83735; 85025; 85027; 96361; 96372; 96375; 96376; 97110; 97116; 97161; 97165; 97535; 99283; 99285; A9153; A9270; G0378; J1171; J1650; J1885; J2270; J7030

== ENCOUNTER 2024-09-17 07:35 | Outpatient (RCR) | payer MEDICARE, SELFPAY | END 2025-01-15 23:59 | disposition home or self-care (01) | PROVIDERS: Visit Provider Family Medicine | DX: S32.591D Other specified fracture of right pubis, subsequent encounter for fracture with routine healing (principal); S32.414D Nondisplaced fracture of anterior wall of right acetabulum, subsequent encounter for fracture with routine healing; M79.651 Pain in right thigh; R10.2 Pelvic and perineal pain; Z51.89 Encounter for other specified aftercare | CPT/HCPCS: 97110; 97161 ==